=== PATIENT | male | born 1995 | race Caucasian/White ===

== ENCOUNTER 2019-10-28 22:18 | Emergency (ER) | payer OTHER ==
[2019-10-28] MEDS ORDERED: methylPREDNISolone SOD SUCC 125 MG/2 ML VIAL IM ONE (22:45)
[2019-10-28] MEDS ORDERED: IPRATROPIUM/ALBUTEROL SULFATE 3 ML AMPUL.NEB NEB ONE (22:45)
--- NOTE | 2019-10-28 22:48 | ED Physician Documentation ---
Upper Respiratory Symptoms - HISTORIAN Historian: patient - HPI Stated Complaint: "I started coughing an hour ago and just could not stop" Chief Complaint: Cough/ Upper Respiratory Additional Information: Patient presents to ED with a coughing spell which started about an hour ago. Patient states he has been sick about a week with diarrhea and cough. The diarrhea stopped several days ago but the cough has persisted. Tonight he started coughing and could not stop. He has a history of asthma as a child, however, has not had issues with it as an adult. He states it has been years since he used inhalers or nebulizer treatment. He denies fever, chills, nausea/vomiting or abdominal pain. Onset: hours (1) Duration: constant Context: denies: recent foreign travel Severity: mild Associated Symptoms: hurts to breathe. denies: fever, chills - ROS CONST/EYES: denies: weakness CVS/RESP: denies: chest pain, shortness of breath LYMPH: denies: leg swelling GI/: denies: abdominal pain, vomiting, nausea NEURO/PSYCH: denies: dizziness MS/SKIN: denies: muscle aches - PAST HX Lung Disease: asthma PE Risk Factors: none Surgeries/Procedures: none Allergies/Adverse Reactions: Allergies Allergy/AdvReac Type Severity Reaction Status Date / Time No Known Allergies Allergy Verified 02/24/15 01:52 Home Medications: Ambulatory Orders Medication Instructions Recorded Azithromycin 250 mg PO DIRECTED 5 Days #6 10/28/19 tablet Methylprednisolone [Medrol] 4 mg PO DIRECTED #1 tab.ds.pk 10/28/19 - SOCIAL HX Smoking History: non-smoker Alcohol Use: none Drug Use: marijuana - FAMILY HX Family History: none - VITAL SIGNS Vital Signs: Vital Signs Temp Pulse Resp BP Pulse Ox 97.6 F 76 16 126/82 97 10/28/19 22:28 10/28/19 22:28 10/28/19 22:28 10/28/19 22:28 10/28/19 22:28 - REVIEWED ASSESSMENTS Nursing Assessment Reviewed: Yes Vitals Reviewed: Yes ED Results Lab/Radiology - Orders Orders: ED Orders Category Date Time Status Ipratropium/Albuterol Sulfate [Duoneb] Med 10/28/19 22:45 Discontinued 3 ml NEB NOW ONE methylPREDNISolone SOD SUCC [SOLU-Medrol] Med 10/28/19 22:45 Discontinued 125 mg IM NOW ONE Upper Respiratory Symptoms - EXAM General Appearance: no acute distress, alert EENT: PERRL Neck: normal inspection Respiratory: no resp. distress, wheezes (scattered occasional wheeze, clears with cough) Abdomen: non-tender, nml bowel sounds CVS: reg rate & rhythm, heart sounds normal Skin: color nml, no rash, warm,dry Extremities: non-tender, no edema Neuro/Psych: oriented x3, mood/affect nml Discharge Clincal Impression: Upper respiratory infection, acute Prescriptions: Azithromycin 250 mg PO DIRECTED 5 Days #6 tablet Methylprednisolone [Medrol] 4 mg PO DIRECTED #1 tab.ds.pk Referrals: Primary Doctor,No [Primary Care Provider] - 2 Days Additional Instructions: 1. Take antibiotics and Medrol dose pack as directed 2. Add a daily antihistamine such as Claritin, Zyrtec, Zyxal or Soila 3. Drink plenty of fluids to maintain proper hydration. Avoid caffeine and alcohol 4. Follow up with PCP within 1 week 5. Return to ER for new or worsening symptoms Condition: Stable Disposition: 01 HOME, SELF-CARE Decision to Admit: NO Date of Decison to Admit: 10/28/19 Decision Time: 23:06
[2019-10-28 23:21] VITALS: BP 132/82
== END 2019-10-28 23:10 | disposition home or self-care (01) ==
LOC: ED 22:18
DX: J06.9 Acute upper respiratory infection, unspecified (principal); F12.90 Cannabis use, unspecified, uncomplicated
CPT/HCPCS: 94640; 96372; 99284; J2930